=== PATIENT | female | born 1955 | race Caucasian/White ===

== ENCOUNTER 2016-11-20 18:54 | Emergency (ER) | payer OTHER ==
[~2016-11-20] VITALS: Ht 167.6 cm; Wt 64.1 kg
[~2016-11-20 18:54] MED LIST: CALCTAB5 PO; CLC100 PO; DIAZ-165 PO; LRT5 PO; PRED50TA PO
[2016-11-20 18:59] VITALS: TEMP 37.3; Ht 167.6 cm; Wt 64.1 kg
[2016-11-20] MEDS ORDERED: HYDROCODONE/ACETAMOPHEN 5/325MG TAB PO STA (19:14)
--- NOTE | 2016-11-20 19:40 | DIAGNOSTIC IMAGING REPORT ---
RIGHT KNEE 1 OR 2 VIEWS ROUTINE CLINICAL HISTORY: Right knee pain status post fall. COMPARISON: None FINDINGS: There is a comminuted, mildly displaced patellar fracture. There is a large joint effusion with lipohemarthrosis. IMPRESSION: Comminuted, minimally displaced patellar fracture with large joint effusion and lipohemarthrosis. Electronically signed by: Tobi Cuevas M.D. 11/20/2016 7:38 PM Dictated Date/Time: 11/20/2016 7:35 PM
[2016-11-20] MEDS ORDERED: HYDR-5688 PO (20:01)
--- NOTE | 2016-11-20 20:16 | EMERGENCY ROOM VISIT NOTE ---
History First contact with patient: 19:01 Chief Complaint: FALL Stated Complaint: FALL,RT KNEE PAIN History of Present Illness The patient is a 61 year old female who presents to the Emergency Room via private vehicle with complaints of "fall, right knee pain". The patient states that earlier today around 4:15 PM she was at her daughter's house when she accidentally fell and tripped landing on both of her knees of which struck the hardwood floor. She states that she initially had pain in both knees with the left knee has subsided but the right knee pain has persisted. She rates the right knee pain as a 7-8/10. The pain is worse with standing. She denies any hip or ankle pain, numbness or tingling or any history of right knee injuries. She points to the anterior right knee just superior to the right patella as the location of her pain. Review of Systems A complete 6-point Review of Systems was discussed with the patient, with pertinent positives and negatives listed in the History of Present Illness. All remaining Review of Systems questions can be considered negative unless otherwise specified. 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 Social History Smoking Status: Never Smoker Social History: Patient lives at home with and is not currently employed. She denies any alcohol or tobacco use. Current/Historical Medications Scheduled Cetirizine (Zyrtec), 10 MG PO QPM Cholecalciferol (Vitamin D), 3,000 UNITS PO QPM Simvastatin (Zocor), 20 MG PO QPM Scheduled PRN Hydrocodone/Acetaminophen 5MG/325MG ([place] 5MG/325MG), 1-2 TABLET PO Q4 PRN for Pain Allergies Coded Allergies: Sulfamethoxazole w/Trimethoprim (Verified Allergy, Unknown, hives, 11/20/16) Physical Exam Vital Signs Date Time Temp Pulse Resp B/P Pulse Ox O2 Delivery O2 Flow Rate FiO2 11/20/16 18:59 37.3 95 18 138/90 98 Room Air Physical Exam VITAL SIGNS - Vital signs and nursing notes were reviewed. Patient is afebrile , her blood pressure is 138/90, she is not tachycardic and is saturating well on room air 98%. GENERAL -61-year-old female appearing her stated age who is in no acute distress. Communicates well with provider and answers questions appropriately. SKIN - Without rashes. The skin overlying the right knee is edematous and non- erythematous. It is intact. HEAD - NC/AT. EXTREMITIES - No clubbing or peripheral cyanosis. No pretibial edema present. +3 /5 posterior tibial, and dorsalis pedis pulses palpated throughout the right lower extremity. +5/5 strength noted in UE/LE bilaterally. Range of motion of the right knee limited secondary to pain. There was tenderness to palpation overlying the patellar region. This region was only lightly palpated. Care was taken to not flex the knee secondary to concern for patellar injury. NEUROLOGIC - Sensory intact to light touch throughout. Medical Decision & Procedures ER Provider Diagnostic Interpretation: Right knee pain s/p fall. Edema noted to superior knee. Medications Administered Medications (Trade) Dose Ordered Sig/Jonatan Route Start Time Stop Time Status Last Admin Dose Admin Acetaminophen/ Hydrocodone Bitart ([place] 5/325 Tab) 1 tab NOW STAT PO 11/20/16 19:14 11/20/16 19:15 DC 11/20/16 19:30 1 TAB Acetaminophen/ Hydrocodone Bitart ([place] 5/325mg Home Pack) 1 homepack UD STAT PO 11/20/16 20:27 11/20/16 20:28 DC 11/20/16 20:32 1 HOMEPACK Medical Decision Patient was seen and evaluated as above. After obtaining a thorough history and physical examination radiographs of the right knee were obtained secondary to subjective and objective examination findings. There was initially a concern over patellar injury therefore the knee 3 view was changed to a two-view. The patient was given one [place] tablet for her pain. Radiograph shows a patellar fracture. This was discussed with Dr. Gaviria, the senior application security consultant orthopedic surgeon for [facility], which is her current orthopedic group I spoke with him at 7:54 PM. It was discussed that the patient could follow up with their office tomorrow by calling them first thing tomorrow morning. Patient was fitted with a knee immobilizer as well as given crutches and instructed to remain nonweightbearing on the right lower extremity. Care was taken to make sure this was with adequate fit. She was instructed upon management. She was instructed upon worrisome symptoms in which to return. She had questions answered prior to discharge and was discharged home in good condition. She was prescribed [place] 5/325 by my attending after verifying no red flags in the In the evaluation and treatment of this patient, the following differential diagnoses were considered: Patellar Fracture, Tibial Plateau Fracture, Distal Femur Fracture, ACL Injury, PCL Injury, Collateral Ligament Injury, Pes Anserine Bursitis, [place] Fracture. [place] Drug Monitoring Program Search Results: patient reviewed within database, no issues identified Impression Primary Impression: Fall Additional Impression: Right patella fracture Departure Information Dispostion Home / Self-Care Condition GOOD Prescriptions Hydrocodone/Acetaminophen 5MG/325MG ([place] 5MG/325MG) Tab 1-2 TABLET PO Q4 Y for Pain, #25 TAB Prov: Brayan Good, DO 11/20/16 Referrals Seb Lock M.D. (PCP) Seb Gaviria M.D. Forms HOME CARE DOCUMENTATION FORM, IMPORTANT VISIT INFORMATION Patient Instructions A Signature Page, My [facility] Additional Instructions You have been treated in the Emergency Department for Knee Pain. You have received pain medicine in the emergency department which impairs your ability to operate a vehicle. It is illegal for you to drive after receiving these medicines. You have been prescribed NORCO to be used for pain control. This is a narcotic medication. You cannot drive or consume alcohol while on this medicine. This medicine should only be used for pain that cannot be controlled with over-the- counter pain medicines. For pain control, you can use the following iwwh-wae-venialp medicines (if >12 yo): DO NOT TAKE THIS WITH TYLENOL, THIS ALREADY HAS TYLENOL IN IT!!!! - Regular strength (200 mg/tab) Advil (ibuprofen) 1-2 tabs every 4-6 hours as needed. Do not exceed a dose of 3200 mg per day. If this is a recent injury (<24 hrs), ice can be applied to the area of pain for the first 3 days to help decrease pain and inflammation. Ice massages can be performed by freezing water in a paper cup, peeling back the cup to expose the ice and then massaging over the affected area. Keep the knee elevated! You have been provided the number for an Orthopaedic Surgeon. You should call this number as soon as possible to establish a follow-up visit from today's Emergency Department visit. Please tell them that you were seen in the ER last night and your case was discussed with Dr. Gaviria. Keep the knee brace in place until cleared by Orthopedics. Use the crutches you have been provided to keep ALL weight off of the knee until weight bearing is tolerable. Return to the Emergency Department if your current symptoms worsen despite treatment course outlined above.
[2016-11-20] MEDS ORDERED: NORCO 5/325MG HOME PACK PO STA (20:27)
[2016-11-20 20:43] VITALS: BP 116/75; PULSE 87; O2SAT 96
[2017-03-24] MEDS ORDERED: SIMV20TA2 PO (00:19)
[2017-03-24] MEDS ORDERED: CHOL100010 PO (19:48)
[2017-03-24] MEDS ORDERED: CETI10TA84 PO (19:48)
[2017-03-25] MEDS ORDERED: MECL-91 PO (13:09)
[2017-03-25] MEDS ORDERED: TRIA1SPR4 NAE (13:09)
== END 2016-11-20 20:43 | disposition home or self-care (01) ==
LOC: C.EDB 18:55 → C.EDD 20:43
DX: S82.001A Unspecified fracture of right patella, initial encounter for closed fracture (principal); W18.09XA Striking against other object with subsequent fall, initial encounter; Y92.009 Unspecified place in unspecified non-institutional (private) residence as the place of occurrence of the external cause; Y99.8 Other external cause status

== ENCOUNTER → 2017-02-13 | Outpatient (CLI) | payer OTHER ==
[~2017-02-13] MED LIST changes: -CALCTAB5 PO; +CETI10TA84 PO; +CHOL100010 PO; -CLC100 PO; -DIAZ-165 PO; +HYDR-5688 PO; -LRT5 PO; +MECL-91 PO; -PRED50TA PO; +SIMV20TA2 PO; +TRIA1SPR4 NAE
--- NOTE | 2017-02-13 14:01 | MAMMOGRAPHY REPORT ---
BILATERAL DIGITAL DIAGNOSTIC MAMMOGRAM TOMOSYNTHESIS WITH CAD: 02/13/2017 CLINICAL HISTORY: 61-year-old woman presents for bilateral diagnostic mammography at time of annual screening and also to reevaluate probably benign microcalcifications in the upper outer quadrant of the right breast. TECHNIQUE: Bilateral CC and MLO 2-D digital and tomosynthesis images, spot magnification right CC an d ML views were obtained. Current study was also evaluated with a Computer Aided Detection (CAD) sy stem. COMPARISON: Comparison is made to exams dated: 08/15/2016 mammogram, 02/10/2016 mammogram, 02/02/2015 mammogram, 02/03/2016 mammogram, 01/30/2014 mammogram, and 01/29/2013 mammogram - [facility]. BREAST COMPOSITION: The tissue of both breasts is heterogeneously dense, which may obscure small ma sses. FINDINGS: There are scattered benign rim calcifications in the breasts. 2 loosely grouped round carmen rocalcifications in the upper outer posterior right breast, near the fatglandular interface, are un changed in appearance dating back to 02/03/2016 and most likely benign. However, another one-year f ollow-up evaluation with spot magnification views is recommended to ensure at least 2 years of stabi lity to confirm benignity. No new suspicious mass, architectural distortion or cluster of microcalc ifications is seen bilaterally. IMPRESSION: ACR-BI-RADS CATEGORY 3: PROBABLY BENIGN Stable bilateral mammograms, including probably benign round loosely grouped microcalcifications in the right upper outer posterior breast. Another 12 month follow-up bilateral diagnostic mammograms including repeat spot magnification views of the right breast is recommended to ensure longer stabil ity. These results and recommendations were discussed with the patient at the time of the exam. Approximately 10% of breast cancers are not detected with mammography. A negative mammographic repor t should not delay biopsy if a clinically suggestive mass is present. Elizabeth Rizzo M.D. ay/:02/13/2017 10:43:42 Plastics Repairer: Sara Mccabe, [facility] letter sent: Follow Up Recommended 3 BI-RADS Code: ACR-BI-RADS Category 3: Probably Benign
== END | disposition home or self-care (01) ==
LOC: C.MAMM 08:13
PROVIDERS: ATTEND Obstetrics & Gynecology
DX: R92.0 Mammographic microcalcification found on diagnostic imaging of breast (principal)

== ENCOUNTER 2017-03-24 18:49 | Observation (INO) | payer OTHER ==
[~2017-03-24] VITALS: Ht 167.6 cm; Wt 63.4 kg
[~2017-03-24 18:49] MED LIST changes: -CETI10TA84 PO; -CHOL100010 PO; -MECL-91 PO; -TRIA1SPR4 NAE
[2017-03-24] MEDS ORDERED: SODIUM CHLORIDE 0.9% 1000ML 1,000 ML IV STA (19:11)
[2017-03-24] MEDS ORDERED: MECLIZINE HCL 25 MG TAB PO STA (19:11)
[2017-03-24] MEDS ORDERED: ONDANSETRON INJ 2 MG/ML 2 ML VIAL IV STA (19:11)
[2017-03-24] MEDS ORDERED: DIAZEPAM INJ 5 MG/ML 2 ML CARP IV STA (19:11)
[2017-03-24] MEDS ORDERED: SODIUM CHLORIDE 0.9% 1000ML 1,000 ML IV SCH (19:11)
[2017-03-24] MEDS ORDERED: OPTIRAY 320 IV PRN (19:15)
--- NOTE | 2017-03-24 19:16 | EMERGENCY ROOM VISIT NOTE ---
History Report prepared by [place]: Gabi Larry Under the Supervision of: Dr. Usama Wilson M.D. 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 The patient states that when she moves her head a certain way her dizziness is worsened. She notes that she was about to walk up her basement steps when the dizziness suddenly started. She complains of head pressure. The patient notes that her blood pressure was higher than usual when she checked it prior to arrival today. She reports that when she closes her eyes her dizziness is not worsened or relieved. 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 Review of Systems See HPI for pertinent positives & negatives. A total of 10 systems reviewed and were otherwise negative. Past Medical & Surgical Medical Problems: (1) No Known Active Medical Problems Family History Cancer Diabetes mellitus Hypertension Seizures Social History Smoking Status: Never Smoker Smokeless Tobacco Use: No Drug Use: none Marital Status: Housing Status: lives with significant other Occupation Status: retired Current/Historical Medications Scheduled Cetirizine (Zyrtec), 10 MG PO QPM Cholecalciferol (Vitamin D), 3,000 UNITS PO QPM Simvastatin (Zocor), 20 MG PO QPM Allergies Coded Allergies: Sulfamethoxazole w/Trimethoprim (Verified Allergy, Intermediate, hives, 10/29) Physical Exam Vital Signs Date Time Temp Pulse Resp B/P Pulse Ox O2 Delivery O2 Flow Rate FiO2 03/24/17 21:59 90 18 117/72 96 Room Air 03/24/17 20:34 86 03/24/17 20:16 82 18 149/79 97 Room Air 03/24/17 19:16 98 Room Air 03/24/17 18:51 36.7 86 18 149/85 98 Room Air Physical Exam GENERAL: Patient is a healthy-appearing well-nourished HEAD: Normocephalic atraumatic EYES: Pupils equal and react to light. Nystagmus present until she focuses on something. OROPHARYNX mucous membranes are moist no exudates present no erythema or edema present NECK: Supple no nuchal rigidity CHEST: Good equal expansion LUNGS: Clear and equal to auscultation CARDIAC: Normal S1 and S2 ABDOMEN: Soft nontender no guarding BACK: No CVA tenderness EXTREMITIES: No pain upon palpation normal muscle strength in all groups no clubbing cyanosis or edema NEURO: Patient is following commands is answering questions appropriately. Alert and oriented x3 Cranial Nerves 2-12 grossly intact Medical Decision & Procedures ER Provider Diagnostic Interpretation: Radiology results as stated below per my review and radiologist interpretation: CHEST ONE VIEW PORTABLE FINDINGS: No pneumothorax. No pleural effusions. The heart is mildly enlarged. Hazy airspace opacities within the right suprahilar and infrahilar locations. The right suprahilar opacity could be due to the overlapping first rib. Mild fullness within the right hilum. Left lung appears clear. No fractures within the visualized osseous structures. IMPRESSION: 1. Hazy airspace opacities within the right suprahilar and infrahilar locations. This may represent a pneumonia. One month follow-up is recommended to ensure resolution. 2. These is also mild fullness within the right hilum which could represent reactive lymphadenopathy. However, this also bears watching on future examinations to ensure resolution. Electronically signed by: Stewart Ramesh M.D. 03/24/2017 7:40 PM Dictated Date/Time: 03/24/2017 7:[address] NONCONTRAST Findings: The paranasal sinuses and mastoid air cells are clear. The calvarium and skull base are intact. The ventricles and sulci are within normal limits. There is no mass, hematoma, midline shift, or acute infarct. Impression: No acute intracranial abnormality. Electronically signed by: Stewart Ramesh M.D. 03/24/2017 7:49 PM Dictated Date/Time: 03/24/2017 7:45 PM HEAD CTA FINDINGS: There is no mass, hematoma, midline shift, or acute infarct. Visualized intracranial internal carotid arteries, distal vertebral arteries, and basilar artery are widely patent. There is no significant stenosis, occlusion, or aneurysm seen within the bilateral ACAs or MCAs. Severely hypoplastic left P1 segment. The left PIPING SUPERVISOR is fed primarily through the left posterior communicating artery. This is considered to be a normal variant. There is focal moderate to severe narrowing within the mid right PIPING SUPERVISOR best seen on image 99 at 245. IMPRESSION: 1. Focal moderate to severe narrowing within the mid right PIPING SUPERVISOR. However, the distal right PIPING SUPERVISOR is patent. 2. Otherwise, the remaining cerebral arteries show no significant stenosis, occlusion, or aneurysm. Electronically signed by: Stewart Ramesh M.D. 03/24/2017 8:30 PM Dictated Date/Time: 03/24/2017 8:24 PM Laboratory Results 03/24/17 19:20 Red Blood Count 4.69, Mean Corpuscular Volume 90.2, Mean Corpuscular Hemoglobin 29.4, Mean Corpuscular Hemoglobin Concent 32.6, Mean Platelet Volume 10.0, Neutrophils (%) (Auto) 46.6, Lymphocytes (%) (Auto) 32.0, Monocytes (%) (Auto) 6.4, Eosinophils (%) (Auto) 14.3, Basophils (%) (Auto) 0.5, Neutrophils # (Auto ) 3.78, Lymphocytes # (Auto) 2.60, Monocytes # (Auto) 0.52, Eosinophils # (Auto ) 1.16, Basophils # (Auto) 0.04 03/24/17 19:20 Test 03/24/17 19:20 03/24/17 19:30 03/24/17 20:18 White Blood Count 8.12 K/uL (4.8-10.8) Red Blood Count 4.69 M/uL (4.2-5.4) Hemoglobin 13.8 g/dL (12.0-16.0) Hematocrit 42.3 % (37-47) Mean Corpuscular Volume 90.2 fL (80-100) Mean Corpuscular Hemoglobin 29.4 pg (25-34) Mean Corpuscular Hemoglobin Concent 32.6 g/dl (32-36) Platelet Count 307 K/uL (130-400) Mean Platelet Volume 10.0 fL (7.4-10.4) Neutrophils (%) (Auto) 46.6 % Lymphocytes (%) (Auto) 32.0 % Monocytes (%) (Auto) 6.4 % Eosinophils (%) (Auto) 14.3 % Basophils (%) (Auto) 0.5 % Neutrophils # (Auto) 3.78 K/uL (1.4-6.5) Lymphocytes # (Auto) 2.60 K/uL (1.2-3.4) Monocytes # (Auto) 0.52 K/uL (0.11-0.59) Eosinophils # (Auto) 1.16 K/uL (0-0.5) Basophils # (Auto) 0.04 K/uL (0-0.2) RDW Standard Deviation 47.2 fL (36.4-46.3) RDW Coefficient of Variation 14.3 % (11.5-14.5) Immature Granulocyte % (Auto) 0.2 % Immature Granulocyte # (Auto) 0.02 K/uL (0.00-0.02) Prothrombin Time 10.1 SECONDS (9.0-12.0) Prothromb Time International Ratio 0.9 (0.9-1.1) Activated Partial Thromboplast Time 24.1 SECONDS (21.0-31.0) Partial Thromboplastin Ratio 0.9 Anion Gap 4.0 mmol/L (3-11) Est Creatinine Clear Calc Drug Dose 64.2 ml/min Estimated GFR () 85.1 Estimated GFR (Non- 73.4 BUN/Creatinine Ratio 22.8 (10-20) Calcium Level 9.8 mg/dl (8.5-10.1) Total Creatine Kinase 52 U/L (26-192) Creatine Kinase MB < 0.5 ng/ml (0.5-3.6) Creatine Kinase MB Ratio (0-3.0) Troponin I < 0.015 ng/ml (0-0.045) Bedside Prothrombin Time INR 1.0 (0.9-1.1) Bedside Glucose 91 mg/dl (70-90) Urine Color YELLOW Urine Appearance CLEAR (CLEAR) Urine pH 5.5 (4.5-7.5) Urine Specific Mellen 1.010 (1.000-1.030) Urine Protein NEG (NEG) Urine Glucose (UA) NEG (NEG) Urine Ketones NEG (NEG) Urine Occult Blood NEG (NEG) Urine Nitrite NEG (NEG) Urine Bilirubin NEG (NEG) Urine Urobilinogen NEG (NEG) Urine Leukocyte Esterase SMALL (NEG) Urine WBC (Auto) 1-5 /hpf (0-5) Urine RBC (Auto) 0-4 /hpf (0-4) Urine Hyaline Casts (Auto) 0 /lpf (0-5) Urine Epithelial Cells (Auto) 0-5 /lpf (0-5) Urine Bacteria (Auto) NEG (NEG) Labs reviewed by ED physician. Medications Administered Medications (Trade) Dose Ordered Sig/Jonatan Route Start Time Stop Time Status Last Admin Dose Admin Sodium Chloride 1,000 ml @ 50 mls/hr Q20H IV 03/24/17 19:11 04/23/17 19:10 03/24/17 20:18 50 MLS/HR Sodium Chloride (Nss 1000ml) 1,000 ml @ 999 mls/hr Q1H1M STAT IV 03/24/17 19:11 03/24/17 20:11 DC 03/24/17 19:22 999 MLS/HR Ondansetron HCl (Zofran Inj) 4 mg NOW STAT IV 03/24/17 19:11 03/24/17 19:14 DC 03/24/17 19:22 4 MG Meclizine HCl (Antivert Tab) 25 mg NOW STAT PO 03/24/17 19:11 03/24/17 19:14 DC 03/24/17 19:22 25 MG Diazepam (Valium Inj) 2.5 mg NOW STAT IV 03/24/17 19:11 03/24/17 19:14 DC 03/24/17 19:22 2.5 MG Aspirin (Aspirin Chew) 324 mg NOW STAT PO 03/24/17 20:53 03/24/17 20:54 DC 03/24/17 21:06 324 MG ECG Indication: other (dizziness) Rate (beats per minute): 80 Rhythm: normal sinus Findings: no acute ischemic change, no ectopy ED Course 1858: Past medical records reviewed. The patient was evaluated in room B7. A complete history and physical examination was performed. 1910: Valium Inj 2.5mg IV, Antivert Tab 25mg PO, Zofran Inj 4mg IV, Sodium Chloride 1000 ml @ 999 mls/hr IV, Sodium Chloride 1000 ml @ 50 mls/hr IV. 2052: I spoke to Dr. Garcia from [facility]. He will evaluate the patient. He will be on the monitor evaluating the patient and would like us to give her fluid and Aspirin. 2052: Aspirin Chew 324mg PO. 2143: I spoke to Dr. Garcia. He recommends that the patient has an MRI and is further evaluated by a hospitalist. Medical Decision Differential diagnosis: Etiologies such as benign positional vertigo, dehydration, hypovolemia, anemia, tumor, infection, hypoglycemia, electrolyte abnormalities, cardiac sources, intracerebral event, toxicologic, neurologic, as well as others were entertained. This is a 61-year-old female who presents emergency department complaining of severe dizziness that is present even when she closes her eyes and does not seem to fatigue. In addition the patient has nystagmus on exam. due to the nature the patient's complaints as well as the nystagmus the patient was sent for CTA of the head area and this was concerning for PIPING SUPERVISOR insufficiency with this finding I did discuss the case with the [facility] neurologist who asked that the patient be given normal saline bolus, 324 mg of aspirin. He also asked that the patient be admitted to the medicine service and receive an MRI/MRA of the head. I did discuss the case with the hospitalist service who is in agreement with the treatment plan. Consults Time Called: 2049 Consulting Physician: Dr. Jose Gonsalez Returned Call: [address] Garcia from [facility]. He will evaluate the patient. Additional Consults: Time Called: 2139 Consulted Physician: Dr. Jose Gonsalez Returned Call: 2143 Additional Comments: I spoke to Dr. Garcia. He recommends that the patient has an MRI and is further evaluated by a hospitalist. Time Called: 2149 Consulted Physician: Dr. Sandra POLO Impression Primary Impression: Dizziness Scribe Attestation The scribe's documentation has been prepared under my direction and personally reviewed by me in its entirety. I confirm that the note above accurately reflects all work, treatment, procedures, and medical decision making performed by me. Departure Information Dispostion Still a Patient Referrals Seb Lock M.D. (PCP) Patient Instructions My [facility]
[2017-03-24 19:32] LABS: BASO % 0.5 %; BASO ABS # 0.04 K/uL (0-0.2); COMPLETE YES; EOS % 14.3 %; HEMATOCRIT 42.3 % (37-47); IG% 0.2 %; MEAN CELL VOLUME 90.2 fL (80-100); MEAN CORPUSCULAR HEMOGLOBIN 29.4 pg (25-34); MEAN CORPUSCULAR HGB CONC 32.6 g/dl (32-36); MONO % 6.4 %; NEUT % 46.6 %; PLATELET COUNT 307 K/uL (130-400); RED BLOOD COUNT 4.69 M/uL (4.2-5.4); WHITE BLOOD COUNT 8.12 K/uL (4.8-10.8)
[2017-03-24 19:41] LABS: INR 0.9 (0.9-1.1); PARTIAL THROMBOPLASTIN RATIO 0.9; PROTHROMBIN TIME (PATIENT) 10.1 SECONDS (9.0-12.0)
--- NOTE | 2017-03-24 19:42 | DIAGNOSTIC IMAGING REPORT ---
CHEST ONE VIEW PORTABLE HISTORY: Dizziness. Stroke COMPARISON: Chest 11/19/2010. FINDINGS: No pneumothorax. No pleural effusions. The heart is mildly enlarged. Hazy airspace opacities within the right suprahilar and infrahilar locations. The right suprahilar opacity could be due to the overlapping first rib. Mild fullness within the right hilum. Left lung appears clear. No fractures within the visualized osseous structures. IMPRESSION: 1. Hazy airspace opacities within the right suprahilar and infrahilar locations. This may represent a pneumonia. One month follow-up is recommended to ensure resolution. 2. These is also mild fullness within the right hilum which could represent reactive lymphadenopathy. However, this also bears watching on future examinations to ensure resolution. Electronically signed by: Stewart Ramesh M.D. 03/24/2017 7:40 PM Dictated Date/Time: 03/24/2017 7:37 PM
[2017-03-24] MEDS ORDERED: CETI10TA84 PO ×2 (19:48)
[2017-03-24] MEDS ORDERED: CHOL100010 PO ×2 (19:48)
[2017-03-24 19:50] LABS: BLOOD UREA NITROGEN 19 mg/dl (7-18); BUN/CREATININE RATIO 22.8 (10-20); CALCIUM 9.8 mg/dl (8.5-10.1); CARBON DIOXIDE 32 mmol/L (21-32); CHLORIDE 104 mmol/L (98-107); CREATININE 0.85 mg/dl (0.60-1.20); GLUCOSE 85 mg/dl (70-99); POTASSIUM 3.9 mmol/L (3.5-5.1); SODIUM 140 mmol/L (136-145)
--- NOTE | 2017-03-24 19:50 | DIAGNOSTIC IMAGING REPORT ---
HEAD CT NONCONTRAST CT DOSE: 537.48 mGy.cm HISTORY: Dizziness. Stroke TECHNIQUE: Multiaxial CT images of the head were performed without the use of intravenous contrast. Automated exposure control was utilized for this study. Comparison: None. Findings: The paranasal sinuses and mastoid air cells are clear. The calvarium and skull base are intact. The ventricles and sulci are within normal limits. There is no mass, hematoma, midline shift, or acute infarct. Impression: No acute intracranial abnormality. Electronically signed by: Stewart Ramesh M.D. 03/24/2017 7:49 PM Dictated Date/Time: 03/24/2017 7:45 PM
[2017-03-24 20:30] LABS: URINE APPEARANCE CLEAR (CLEAR); URINE BILIRUBIN NEG (NEG); URINE COLOR YELLOW; URINE EPITHELIAL CELL AUTO 0-5 /lpf (0-5); URINE NITRITE NEG (NEG); URINE PH 5.5 (4.5-7.5); UROBILINOGEN NEG (NEG); ZZUR CULT IF INDIC CLEAN CATCH NO
--- NOTE | 2017-03-24 20:31 | DIAGNOSTIC IMAGING REPORT ---
HEAD CTA HISTORY: Dizziness. TECHNIQUE: Multiaxial CT images of the head were performed after the intravenous administration of contrast to evaluate the major cerebral vessels. Maximum intensity projection images were also obtained. COMPARISON: Head CT 03/24/2017. FINDINGS: There is no mass, hematoma, midline shift, or acute infarct. Visualized intracranial internal carotid arteries, distal vertebral arteries, and basilar artery are widely patent. There is no significant stenosis, occlusion, or aneurysm seen within the bilateral ACAs or MCAs. Severely hypoplastic left P1 segment. The left TOP DYEING MACHINE LOADER is fed primarily through the left posterior communicating artery. This is considered to be a normal variant. There is focal moderate to severe narrowing within the mid right TOP DYEING MACHINE LOADER best seen on image 99 at 245. IMPRESSION: 1. Focal moderate to severe narrowing within the mid right TOP DYEING MACHINE LOADER. However, the distal right TOP DYEING MACHINE LOADER is patent. 2. Otherwise, the remaining cerebral arteries show no significant stenosis, occlusion, or aneurysm. Electronically signed by: Stewart Ramesh M.D. 03/24/2017 8:30 PM Dictated Date/Time: 03/24/2017 8:24 PM
[2017-03-24 20:33] LABS: MANUAL MICROSCOPIC REQUIRED? NO; REVIEW REQ? NO
[2017-03-24] MEDS ORDERED: ASPIRIN 81 MG CHEW PO STA (20:53)
--- NOTE | 2017-03-24 23:23 | History and Physical ---
History & Physical Date & Time of Service: March 24, 2017 at 23:24 Chief Complaint: Dizzy,Possible Tia Primary Care Physician: Seb Lock M.D. History of Present Illness Source: patient The patient is a 61-year-old female who presents emergency department with complaint of intermittent dizziness that began just prior to arrival. She was in her basement time symptoms began, and was about to walk up steps. She's also had generalized head pressure, and she notes that her blood pressure was higher than usual when she checked it just prior to arrival. The dizziness is worse with some directions of head movement, and does not change when she closes her eyes. She denies focal weakness, numbness or tingling in arms or legs, and she has no difficulty with speech, swallowing, or memory function. Family History Cancer Diabetes mellitus Hypertension Seizures Social History Smoking Status: Never Smoker Smokeless Tobacco Use: No Alcohol Use: none Drug Use: none Marital Status: Housing status: lives with family Occupational Status: retired Multi-Drug Resistant Organisms History of MDRO: No Allergies Coded Allergies: Sulfamethoxazole w/Trimethoprim (Verified Allergy, Intermediate, hives, 10/29) Home Medications Scheduled Cetirizine (Zyrtec), 10 MG PO QPM Cholecalciferol (Vitamin D), 3,000 UNITS PO QPM Simvastatin (Zocor), 20 MG PO QPM Review of Systems Constitutional: No chills, No fatigue, No fever, No problem reported, No sweats , No weakness, No weight loss Eyes: No diplopia, No discharge, No eye pain, No problem reported, No redness, No worsening of vision ENT: No dental problems, No hearing loss, No nasal symptoms, No problem reported, No sore throat, No tinnitus, No trouble swallowing, No unusual epistaxis Respiratory: No cough, No dyspnea at rest, No dyspnea on exertion, No hemoptysis, No problem reported, No shortness of breath, No sputum, No wheezing Cardiovascular: No PND, No chest pain, No claudication, No edema, No orthopnea , No palpitations, No problem reported Abdomen: No GI bleeding, No constipation, No diarrhea, No nausea, No pain, No problem reported, No vomiting Musculoskeletal: No calf pain, No joint pain, No muscle pain, No problem reported, No swelling Genitourinary - Female: No dysmenorrhea, No dysuria, No hematuria, No menorrhagia, No metrorrhagia, No , No problem reported, No rash, No urinary frequency, No urinary incontinence, No urinary retention, No urinary urgency, No vaginal bleeding, No vaginal discharge, No vaginal itching, No vulvodynia Neurologic: + problem reported (dizziness), No balance problems, No memory loss , No numbness/tingling, No paralysis, No vertigo, No weakness Psychiatric: No anhedonism, No anxiety, No depression symptoms, No insomnia, No problem reported, No substance abuse Endocrine: No excessive thirst, No excessive urination, No fatigue, No problem reported Hematologic / Lymphatic: No abnormal bleeding/bruising, No clotting problems, No night sweats, No problem reported, No swollen lymph nodes Integumentary: No bleeding, No color change, No itch, No new/changing skin lesions, No problem reported, No rash Allergic / Immunologic: No environmental allergies, No food allergies, No frequent infections, No hives, No pet sensitivities, No poor healing, No problem reported, No prolonged convalescence, No seasonal allergies Physical Exam Vital Signs Date Time Temp Pulse Resp B/P Pulse Ox O2 Delivery O2 Flow Rate FiO2 03/24/17 21:59 90 18 117/72 96 Room Air 03/24/17 20:34 86 03/24/17 20:16 82 18 149/79 97 Room Air 03/24/17 19:16 98 Room Air 03/24/17 18:51 36.7 86 18 149/85 98 Room Air General Appearance: WD/WN, no apparent distress Head: normocephalic, atraumatic Eyes: normal inspection, PERRL, EOMI, sclerae normal ENT: normal ENT inspection, hearing grossly normal, pharynx normal Neck: supple, no adenopathy, thyroid normal, no JVD, no carotid bruits, trachea midline Respiratory/Chest: chest non-tender, lungs clear, normal breath sounds, no respiratory distress, no accessory muscle use Cardiovascular: regular rate, rhythm, no edema, no gallop, no JVD, no murmur, normal peripheral pulses Abdomen/GI: normal bowel sounds, non tender, soft, no organomegaly Back: normal inspection, no CVA tenderness, no muscle spasm, normal range of motion Extremities/Musculoskelatal: normal inspection, no calf tenderness, normal capillary refill, no pedal edema, normal range of motion, non-tender, pelvis stable 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: 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, no motor/sensory deficits, alert, normal mood/affect, normal reflexes, oriented x 3 Skin: normal color, warm/dry, no rash Lymphatic: no adenopathy Diagnostics Laboratory Results Results Past 24 Hours Test 03/24/17 19:20 03/24/17 19:30 03/24/17 20:18 Range/Units White Blood Count 8.12 4.8-10.8 K/uL Red Blood Count 4.69 4.2-5.4 M/uL Hemoglobin 13.8 12.0-16.0 g/dL Hematocrit 42.3 37-47 % Mean Corpuscular Volume 90.2 80-100 fL Mean Corpuscular Hemoglobin 29.4 25-34 pg Mean Corpuscular Hemoglobin Concent 32.6 32-36 g/dl Platelet Count 307 130-400 K/uL Mean Platelet Volume 10.0 7.4-10.4 fL Neutrophils (%) (Auto) 46.6 % Lymphocytes (%) (Auto) 32.0 % Monocytes (%) (Auto) 6.4 % Eosinophils (%) (Auto) 14.3 % Basophils (%) (Auto) 0.5 % Neutrophils # (Auto) 3.78 1.4-6.5 K/uL Lymphocytes # (Auto) 2.60 1.2-3.4 K/uL Monocytes # (Auto) 0.52 0.11-0.59 K/uL Eosinophils # (Auto) 1.16 0-0.5 K/uL Basophils # (Auto) 0.04 0-0.2 K/uL RDW Standard Deviation 47.2 36.4-46.3 fL RDW Coefficient of Variation 14.3 11.5-14.5 % Immature Granulocyte % (Auto) 0.2 % Immature Granulocyte # (Auto) 0.02 0.00-0.02 K/uL Prothrombin Time 10.1 9.0-12.0 SECONDS Prothromb Time International Ratio 0.9 0.9-1.1 Activated Partial Thromboplast Time 24.1 21.0-31.0 SECONDS Partial Thromboplastin Ratio 0.9 Sodium Level 140 136-145 mmol/L Potassium Level 3.9 3.5-5.1 mmol/L Chloride Level 104 98-107 mmol/L Carbon Dioxide Level 32 21-32 mmol/L Anion Gap 4.0 3-11 mmol/L Blood Urea Nitrogen 19 7-18 mg/dl Creatinine 0.85 0.60-1.20 mg/dl Est Creatinine Clear Calc Drug Dose 64.2 ml/min Estimated GFR () 85.1 Estimated GFR (Non- 73.4 BUN/Creatinine Ratio 22.8 10-20 Random Glucose 85 70-99 mg/dl Calcium Level 9.8 8.5-10.1 mg/dl Total Creatine Kinase 52 26-192 U/L Creatine Kinase MB < 0.5 0.5-3.6 ng/ml Creatine Kinase MB Ratio 0-3.0 Troponin I < 0.015 0-0.045 ng/ml Bedside Prothrombin Time INR 1.0 0.9-1.1 Bedside Glucose 91 70-90 mg/dl Urine Color YELLOW Urine Appearance CLEAR CLEAR Urine pH 5.5 4.5-7.5 Urine Specific [place] 1.010 1.000-1.030 Urine Protein NEG NEG Urine Glucose (UA) NEG NEG Urine Ketones NEG NEG Urine Occult Blood NEG NEG Urine Nitrite NEG NEG Urine Bilirubin NEG NEG Urine Urobilinogen NEG NEG Urine Leukocyte Esterase SMALL NEG Urine WBC (Auto) 1-5 0-5 /hpf Urine RBC (Auto) 0-4 0-4 /hpf Urine Hyaline Casts (Auto) 0 0-5 /lpf Urine Epithelial Cells (Auto) 0-5 0-5 /lpf Urine Bacteria (Auto) NEG NEG Diagnostic Radiology Patient Name: LILA MEJIA Unit Number: [id number] Dictated: 03/24/171944 Transcribed: 03/24/171944 [facility] Printed Date/Time: [~ rep prt dt]/[~ rep prt tm] [~ rep ct labl] - [~ rep ct ivnm] [facility] [place] [address] Dictated: 03/24/171944 Transcribed: 03/24/171944 [facility] Printed Date/Time: [~ rep prt dt]/[~ rep prt tm] [~ rep ct labl] - [~ rep ct ivnm] HEAD CT NONCONTRAST CT DOSE: 537.48 mGy.cm HISTORY: Dizziness. Stroke TECHNIQUE: Multiaxial CT images of the head were performed without the use of intravenous contrast. Automated exposure control was utilized for this study. Comparison: None. Findings: The paranasal sinuses and mastoid air cells are clear. The calvarium and skull base are intact. The ventricles and sulci are within normal limits. There is no mass, hematoma, midline shift, or acute infarct. Impression: No acute intracranial abnormality. Electronically signed by: Stewart Ramesh M.D. 03/24/2017 7:49 PM Dictated Date/Time: 03/24/2017 7:45 PM The status of this report is Signed. Draft = Not yet reviewed or approved by Radiologist. Signed = Reviewed and approved by Radiologist. <AttendingPhy></AttendingPhy> <FamilyPhy>Seb Lock M.D.</FamilyPhy> < PrimaryPhy>Seb Lock M.D.</PrimaryPhy> <UnitNumber>[id number]</UnitNumber> <VisitNumber>[id number]</VisitNumber> <PatientName>LILA MEJIA</ PatientName> <DateOfBirth>1955</DateOfBirth> <Location>C.EDB</Location> < ServiceDate>03/24/17</ServiceDate> <MNE>ESINDI</MNE> <OrderingPhy>Usama Wilson MD</OrderingPhy> <OrderingPhyMNE>f rep ord dr carrizales</OrderingPhyMNE> < DictatingPhyMNE>f rep dict dr carrizales</DictatingPhyMNE> <CCListMNE>f rep ct sofie</ CCListMNE> <AdmittingPhyMNE>f pt admit dr carrizales</AdmittingPhyMNE> <AttendingPhyMNE >f pt attend dr carrizales</AttendingPhyMNE> <ConsultingPhyMNE>f pt consult dr carrizales</ConsultingPhyMNE> <FamilyPhyMNE>f pt fam dr carrizales</FamilyPhyMNE> <OtherPhyMNE>f pt other dr carrizales</OtherPhyMNE> < PrimaryPhyMNE>f pt prim care dr carrizales</PrimaryPhyMNE> <ReferringPhyMNE>f pt referring dr carrizales</ReferringPhyMNE> Patient Name: LILA MEJIA Unit Number: [id number] Dictated: 03/24/171936 Transcribed: 03/24/171936 [facility] Printed Date/Time: [~ rep prt dt]/[~ rep prt tm] [~ rep ct labl] - [~ rep ct ivnm] [facility] Radiology Department [place] [id number] Dictated: 03/24/171936 Transcribed: 03/24/171936 [facility] Printed Date/Time: [~ rep prt dt]/[~ rep prt tm] [~ rep ct labl] - [~ rep ct ivnm] CHEST ONE VIEW PORTABLE HISTORY: Dizziness. Stroke COMPARISON: Chest 11/19/2010. FINDINGS: No pneumothorax. No pleural effusions. The heart is mildly enlarged. Hazy airspace opacities within the right suprahilar and infrahilar locations. The right suprahilar opacity could be due to the overlapping first rib. Mild fullness within the right hilum. Left lung appears clear. No fractures within the visualized osseous structures. IMPRESSION: 1. Hazy airspace opacities within the right suprahilar and infrahilar locations. This may represent a pneumonia. One month follow-up is recommended to ensure resolution. 2. These is also mild fullness within the right hilum which could represent reactive lymphadenopathy. However, this also bears watching on future examinations to ensure resolution. Electronically signed by: Stewart Ramesh M.D. 03/24/2017 7:40 PM Dictated Date/Time: 03/24/2017 7:37 PM The status of this report is Signed. Draft = Not yet reviewed or approved by Radiologist. Signed = Reviewed and approved by Radiologist. <AttendingPhy></AttendingPhy> <FamilyPhy>Seb Lock M.D.</FamilyPhy> < PrimaryPhy>Seb Lock M.D.</PrimaryPhy> <UnitNumber>[id number]</UnitNumber> <VisitNumber>[id number]</VisitNumber> <PatientName>LILA MEJIA</ PatientName> <DateOfBirth>1955</DateOfBirth> <Location>C.EDB</Location> < ServiceDate>03/24/17</ServiceDate> <MNE>ESINDI</MNE> <OrderingPhy>Usama Wilson MD</OrderingPhy> <OrderingPhyMNE>f rep ord dr carrizales</OrderingPhyMNE> < DictatingPhyMNE>f rep dict dr carrizales</DictatingPhyMNE> <CCListMNE>f rep ct mne</ CCListMNE> <AdmittingPhyMNE>f pt admit dr carrizales</AdmittingPhyMNE> <AttendingPhyMNE >f pt attend dr carrizaels</AttendingPhyMNE> <ConsultingPhyMNE>f pt consult dr carrizales</ConsultingPhyMNE> <FamilyPhyMNE>f pt fam dr carrizales</FamilyPhyMNE> <OtherPhyMNE>f pt other dr carrizales</OtherPhyMNE> < PrimaryPhyMNE>f pt prim care dr carrizales</PrimaryPhyMNE> <ReferringPhyMNE>f pt referring dr carrizales</ReferringPhyMNE> Patient Name: LILA MEJIA Unit Number: [id number] Dictated: 03/24/172023 Transcribed: 03/24/172023 [facility] Printed Date/Time: [~ rep prt dt]/[~ rep prt tm] [~ rep ct labl] - [~ rep ct ivnm] [facility] Radiology Department [place] [id number] Dictated: 03/24/172023 Transcribed: 03/24/172023 [facility] Printed Date/Time: [~ rep prt dt]/[~ rep prt tm] [~ rep ct labl] - [~ rep ct ivnm] HEAD CTA HISTORY: Dizziness. TECHNIQUE: Multiaxial CT images of the head were performed after the intravenous administration of contrast to evaluate the major cerebral vessels. Maximum intensity projection images were also obtained. COMPARISON: Head CT 03/24/2017. FINDINGS: There is no mass, hematoma, midline shift, or acute infarct. Visualized intracranial internal carotid arteries, distal vertebral arteries, and basilar artery are widely patent. There is no significant stenosis, occlusion, or aneurysm seen within the bilateral ACAs or MCAs. Severely hypoplastic left P1 segment. The left ASSISTANT LABORATORY DIRECTOR is fed primarily through the left posterior communicating artery. This is considered to be a normal variant. There is focal moderate to severe narrowing within the mid right ASSISTANT LABORATORY DIRECTOR best seen on image 99 at 245. IMPRESSION: 1. Focal moderate to severe narrowing within the mid right ASSISTANT LABORATORY DIRECTOR. However, the distal right ASSISTANT LABORATORY DIRECTOR is patent. 2. Otherwise, the remaining cerebral arteries show no significant stenosis, occlusion, or aneurysm. Electronically signed by: Stewart Ramesh M.D. 03/24/2017 8:30 PM Dictated Date/Time: 03/24/2017 8:24 PM The status of this report is Signed. Draft = Not yet reviewed or approved by Radiologist. Signed = Reviewed and approved by Radiologist. <AttendingPhy></AttendingPhy> <FamilyPhy>Seb Lock M.D.</FamilyPhy> < PrimaryPhy>Seb Lock M.D.</PrimaryPhy> <UnitNumber>[id number]</UnitNumber> <VisitNumber>[id number]</VisitNumber> <PatientName>LILA MEJIA</ PatientName> <DateOfBirth>1955</DateOfBirth> <Location>C.EDB</Location> < ServiceDate>03/24/17</ServiceDate> <MNE>ESINDI</MNE> <OrderingPhy>Usama Wilson MD</OrderingPhy> <OrderingPhyMNE>f rep ord dr carrizales</OrderingPhyMNE> < DictatingPhyMNE>f rep dict dr carrizales</DictatingPhyMNE> <CCListMNE>f rep ct sofie</ CCListMNE> <AdmittingPhyMNE>f pt admit dr carrizales</AdmittingPhyMNE> <AttendingPhyMNE >f pt attend dr carrizales</AttendingPhyMNE> <ConsultingPhyMNE>f pt consult dr carrizales</ConsultingPhyMNE> <FamilyPhyMNE>f pt fam dr carrizales</FamilyPhyMNE> <OtherPhyMNE>f pt other dr carrizales</OtherPhyMNE> < PrimaryPhyMNE>f pt prim care dr carrizales</PrimaryPhyMNE> <ReferringPhyMNE>f pt referring dr carrizales</ReferringPhyMNE> EKG EKG shows normal sinus rhythm at 80 bpm, there are no acute ST-T changes. Impression Assessment and Plan Dizziness/possible TIA--the patient will be admitted to the telemetry unit for serial cardiac enzymes, cardiac rhythm monitoring and a 2-D echocardiogram with Dopplers. CT of the head suggests possible ASSISTANT LABORATORY DIRECTOR focal narrowing. We will order an MRI of the brain combo, MRA of the neck combo, MRA of the head without contrast. We'll place patient on aspirin 81 mg by mouth every morning. Consult neurology, PT and OT, per protocol. Abnormal chest x-ray--portable film suggests a possible pneumonia in the right suprahilar and infrahilar regions. However, she has no symptoms, and has a normal white blood cell count and pulse ox. We'll order a CT scan of the chest to assess for possible obstructive pathology. Hypercholesterolemia--check a fasting lipid profile in the a.m. For now increase simvastatin from 20-40 mg by mouth every afternoon. Seasonal allergy--continue cetirizine 10 mg by mouth every afternoon. Level of Care Telemetry Advanced Directives Existing Advance Directive: No Existing Living Will: No Existing Power of Cultural Centre Manager: No Resuscitation Status FULL RESUSCITATION VTE Prophylaxis Risk Level: Low Given or contraindicated: SCD's Social Service Consult None Apply
[2017-03-25] MEDS ORDERED: GADAVIST IV PRN (00:15)
[2017-03-25] MEDS ORDERED: ACETAMINOPHEN 325 MG TAB PO PRN (01:15)
[2017-03-25] MEDS ORDERED: PHARMACIST DISCHARGE MED REC CONSULT PRN (01:15)
[2017-03-25] MEDS ORDERED: IV FLUIDS COMPLETED PRN (01:45)
[2017-03-25 02:30] VITALS: BP 108/71; PULSE 82; TEMP 36.7; O2SAT 97; Ht 167.6 cm; Wt 63.4 kg
--- NOTE | 2017-03-25 07:16 | DIAGNOSTIC IMAGING REPORT ---
Brain MRI WITH AND WITHOUT CONTRAST HISTORY: Pt c/o vertigo TECHNIQUE: Multiplanar multisequence MRI of the brain was performed both before and after the intravenous administration of contrast. COMPARISON STUDY: Head CT 03/24/2017. FINDINGS: There are no areas of restricted diffusion to suggest acute infarction. The midline structures are intact. The paranasal sinuses are clear. The mastoid air cells are clear. The ventricles and sulci are within normal limits for age. There is no mass, hematoma, midline shift. The major vascular flow-voids at the skull base are well maintained. Postcontrast sequences show no areas of abnormal enhancement. Questionable patchy area of enhancement within the right cerebellar hemisphere is likely artifact. IMPRESSION: No acute intracranial abnormality. Electronically signed by: Stewart Ramesh M.D. 03/25/2017 7:15 AM Dictated Date/Time: 03/25/2017 7:12 AM
[2017-03-25 07:17] LABS: ESTIMATED AVERAGE GLUCOSE 117 mg/dl; HA1C FLAG Normal (Normal)
--- NOTE | 2017-03-25 07:19 | DIAGNOSTIC IMAGING REPORT ---
Brain MRA HISTORY: Pt c/o vertigo TECHNIQUE: 3-D [id number] MRA of the brain was performed without contrast. COMPARISON STUDY: Head CTA 03/24/2017. FINDINGS: Visualized intracranial internal carotid arteries, distal vertebral arteries, and basilar artery are widely patent. There is no significant stenosis, occlusion, or aneurysm seen within the bilateral ACAs, MCAs, or surgeon's assistant. Hypoplastic left P1 segment is again noted. IMPRESSION: No significant stenosis, occlusion, or aneurysm within the [place]. Electronically signed by: Stewart Ramesh M.D. 03/25/2017 7:17 AM Dictated Date/Time: 03/25/2017 7:15 AM
--- NOTE | 2017-03-25 07:21 | DIAGNOSTIC IMAGING REPORT ---
NECK MRA HISTORY: Pt c/o vertigo TECHNIQUE: Izew-to-cphjep and gadolinium-enhanced MRA of the neck was performed both before and after the intravenous administration of contrast. All measurements were calculated based on NASCET criteria. COMPARISON STUDY: None. FINDINGS: The aortic arch and proximal great vessels are widely patent. There is no significant stenosis, occlusion, or dissection identified within the bilateral common carotid, internal carotid, or vertebral arteries. IMPRESSION: No significant stenosis, occlusion, or dissection identified within the carotid or vertebral arteries. Electronically signed by: Stewart Ramesh M.D. 03/25/2017 7:19 AM Dictated Date/Time: 03/25/2017 7:17 AM
[2017-03-25 08:39] VITALS: BP 120/73; PULSE 60; TEMP 37; O2SAT 97
[2017-03-25] MEDS ORDERED: ASPIRIN 81 MG ECTAB PO SCH (09:00)
--- NOTE | 2017-03-25 09:41 | DIAGNOSTIC IMAGING REPORT ---
CHEST CT WITH CONTRAST CT DOSE: 176.41 mGy.cm HISTORY: ABNORMAL CHEST X-RAY WITH POSSIBLE RIGHT SIDE PNEUMONIA TECHNIQUE: Multiaxial CT images of the chest were performed following the intravenous administration of contrast. COMPARISON: Chest 03/24/2017. FINDINGS: The central airways are patent. No pleural effusions. No pneumothorax. Small biapical subpleural densities favor scarring. No focal lung consolidations to suggest pneumonia. There is a 1.5 cm solid and cystic right thyroid nodule. This remains unchanged. No mediastinal or hilar lymphadenopathy. The visualized liver, spleen, and adrenal glands are unremarkable. The central pulmonary arteries are patent. Normal caliber thoracic aorta. IMPRESSION: 1. No focal lung consolidations to suggest pneumonia. 2. No mediastinal or hilar lymphadenopathy. 3. Stable 1.5 cm right thyroid nodule. Electronically signed by: Stewart Ramesh M.D. 03/25/2017 9:40 AM Dictated Date/Time: 03/25/2017 9:35 AM
--- NOTE | 2017-03-25 11:13 | Neurology Consultation ---
Neurology Consultation Date of Consultation: March 25, 2017. Attending Physician: Rashaun Gaines MD Primary Care Physician: Seb Lock M.D. Reason for Consultation: Patient is a 61-year-old, was I was asked to see at request of Dr. Flores , for neurologic consultation regarding acute vertigo question TIA or stroke. History of Present Illness Source: patient, family, caregiver, hospital records Patient has no significant history of hypertension, diabetes, heart disease, or stroke. She does have some dyslipidemia and takes a statin. She was in her usual state of good health when she woke on March 24. She spent the day around the house and went out shopping feeling quite well. Around 5:00 in the afternoon she was involved in some projects around the house when she went to start preparing supper. Somewhere around 5:30 she had the onset of some mild wooziness and dizziness. There was a moving sensation and she may have had a bit of spinning to this. It was mild for about 15 or 20 minutes and then she had a severe episode of vertigo plus lightheadedness and some bioccipital discomfort somewhere around 6:00 in the evening. She took her own blood pressure and it was 164/90. She no speech or mentation problems, weakness or numbness in the extremities, vision problems, balance issues, or nausea or vomiting. The worst of this lasted 30-60 seconds. They traveled to the emergency room and arrived at 1851 hours with a temperature of 36.7, pulse 86 and regular, respiratory 18 and comfortable, blood pressure 149/85, and O2 saturation 98%. She was noted to have nystagmus with lateral gaze. Her vertigo had improved nicely although there was a little bit of wooziness still. She denied hearing loss, ear pain or ringing in the ears although there was some fullness to both ears. CT scan of the head was unremarkable. Chest x-ray showed some right perihilar shadowing. CBC and chem profile were unremarkable. CT angiography of the head showed a narrowing of the right posterior cerebral artery. MRI of the brain was unremarkable with no evidence of stroke, tumor, MS, or old ischemia MR angiography of the head and neck were both unremarkable with no significant stenoses. By this morning her symptoms have resolved. Past Medical/Surgical History Medical Problems: (1) Fall Status: Acute (2) Right patella fracture Status: Acute Dyslipidemia Was some teeth removal Family History Mother age 94 with multiple TIAs. Maternal grandmother had MS. Father age 84 of prostate cancer She has 2 children and 4 grandchildren Social History Patient never smoked cigarettes. She has a glass of wine perhaps once per month. 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 Smoking Status: Never smoker Smokeless Tobacco Use: No Alcohol Use: occasionally Drug Use: none Marital Status: Housing Status: lives with significant other Occupation Status: retired Allergies Coded Allergies: Sulfamethoxazole w/Trimethoprim (Verified Allergy, Intermediate, hives, 10/29) Current Inpatient Medications Current Inpatient Medications Medications (Trade) Dose Ordered Sig/Jonatan Route Start Time Stop Time Status Last Admin Dose Admin Ioversol (Optiray 320) 100 ml UD PRN IV 03/24/17 19:15 03/28/17 19:14 Gadobutrol (Gadavist) 6.5 mmol UD PRN IV 03/25/17 00:15 03/29/17 00:14 Aspirin (Ecotrin Tab) 81 mg QAM PO 03/25/17 09:00 04/24/17 08:59 03/25/17 08:41 81 MG Miscellaneous Information (Pharmacist Discharge Med Rec Consult) 1 ea UD PRN N/A 03/25/17 01:15 04/24/17 01:14 Acetaminophen (Tylenol Tab) 650 mg Q4H PRN PO 03/25/17 01:15 04/24/17 01:14 Cetirizine HCl (zyrTEC TAB) 10 mg QPM PO 03/25/17 21:00 04/24/17 20:59 Cholecalciferol (Vitamin D Tab) 1,000 inter.unit QPM PO 03/25/17 21:00 04/24/17 20:59 Simvastatin (Zocor Tab) 40 mg QPM PO 03/25/17 21:00 04/24/17 20:59 Miscellaneous (Iv Fluids Completed) 1 ea PRN PRN N/A 03/25/17 01:45 03/25/18 01:44 Review of Systems Constitutional: No fatigue, No fever, No weakness Eyes: No diplopia, No worsening of vision ENT: No hearing loss, No sore throat, No tinnitus Respiratory: No cough, No shortness of breath Cardiovascular: No chest pain, No palpitations Abdomen: No nausea, No pain Musculoskeletal: No joint pain, No muscle pain Genitourinary - Female: No dysuria, No urinary incontinence Neurologic: + vertigo, No balance problems, No memory loss, No numbness/ tingling, No weakness Psychiatric: No anxiety, No depression symptoms Endocrine: No fatigue Hematologic / Lymphatic: No abnormal bleeding/bruising Integumentary: No rash Allergic / Immunologic: No hives Physical Exam Vital Signs (Past 24 Hrs): Date Time Temp Pulse Resp B/P Pulse Ox O2 Delivery O2 Flow Rate FiO2 03/25/17 08:39 37.0 60 20 120/73 97 03/25/17 04:00 Room Air 03/25/17 02:30 36.7 82 18 108/71 97 Room Air 03/25/17 01:06 84 20 115/68 96 Room Air 03/25/17 00:08 82 18 119/71 96 Room Air 03/24/17 21:59 90 18 117/72 96 Room Air 03/24/17 20:34 86 03/24/17 20:16 82 18 149/79 97 Room Air 03/24/17 19:16 98 Room Air 03/24/17 18:51 36.7 86 18 149/85 98 Room Air Patient is right-handed. The patient is awake and alert. Speech is normal without aphasia or dysarthria. Mentation and thought processes are intact with orientation and normal fund of knowledge. Mood and affect are normal and appropriate. Appearance and grooming are normal. The discs are sharp with positive venous pulsations. Pupils are 4mm on the right and 3 mm on the left with both reactive to light. Extraocular eye muscles are intact some intermittent nystagmus with lateral gaze and fast component in the direction of gaze. This nystagmus was not consistent and there is no rotary or vertical nystagmus. Visual acuity and visual buckley seem normal grossly to confrontation. There are no deficits to sensation of the face bilaterally. Corneal reflexes are positive bilaterally. Facial strength and symmetry is normal bilaterally. Hearing seems intact grossly to voice and finger rub. Palate moves well without astmmetry. There is normal sternocleidomastoid and trapezius strength bilaterally. Tongue is midline with good strength bilaterally. Neck is with full range of motion without discomfort. There are no cervical bruits. There are no cranial or ocular bruits. Heart is without murmur. Cervical, thoracic, and lumbar spine are nontender to palpation. Gait is normal. There is good are swing, turn, stance, and balance. With outstretched arms there is no drift. There are no resting, postural, or action tremors. There is no ataxia with [id number] testing. There is good facility in the hands. There are no abnormal involuntary movements noted. Motor strength is 5/5 diffusely in the arms bilaterally including deltoids, biceps, brachioradialis, wrist flexors and extensors, telecommunications network planner, and intrinsic hand muscles. Motor strength is 5/5 diffusely in the legs bilaterally including hip flexors, quadriceps, hamstring, gastrocnemius, tibialis anterior, tibialis posterior, and peroneii muscles bilaterally. Toe extensors are normal and there is good bulk in the extensor digitorum brevis muscle bilaterally. The limbs have good tone without rigidity or spasticity, and there is no atrophy noted. Muscle bulk is normal, there is no tenderness, no myotonia noted to percussion, and no fasciculations seen. Sensory examination is intact to pin and touch throughout all four limbs. Reflexes are 2/4 in the biceps, triceps, brachioradialis, quadriceps, and Achilles tendons bilaterally. Toes are downgoing with plantar stimulation bilaterally. Peripheral pulses are present and of normal quality distally in all four limbs. There is no peripheral edema noted. Laboratory Results Past 24 Hours: 03/24/17 19:20 Red Blood Count 4.69, Mean Corpuscular Volume 90.2, Mean Corpuscular Hemoglobin 29.4, Mean Corpuscular Hemoglobin Concent 32.6, Mean Platelet Volume 10.0, Neutrophils (%) (Auto) 46.6, Lymphocytes (%) (Auto) 32.0, Monocytes (%) (Auto) 6.4, Eosinophils (%) (Auto) 14.3, Basophils (%) (Auto) 0.5, Neutrophils # (Auto ) 3.78, Lymphocytes # (Auto) 2.60, Monocytes # (Auto) 0.52, Eosinophils # (Auto ) 1.16, Basophils # (Auto) 0.04 03/24/17 19:20 Test 03/24/17 19:20 03/24/17 19:30 03/24/17 20:18 03/25/17 01:35 White Blood Count 8.12 K/uL (4.8-10.8) Red Blood Count 4.69 M/uL (4.2-5.4) Hemoglobin 13.8 g/dL (12.0-16.0) Hematocrit 42.3 % (37-47) Mean Corpuscular Volume 90.2 fL (80-100) Mean Corpuscular Hemoglobin 29.4 pg (25-34) Mean Corpuscular Hemoglobin Concent 32.6 g/dl (32-36) Platelet Count 307 K/uL (130-400) Mean Platelet Volume 10.0 fL (7.4-10.4) Neutrophils (%) (Auto) 46.6 % Lymphocytes (%) (Auto) 32.0 % Monocytes (%) (Auto) 6.4 % Eosinophils (%) (Auto) 14.3 % Basophils (%) (Auto) 0.5 % Neutrophils # (Auto) 3.78 K/uL (1.4-6.5) Lymphocytes # (Auto) 2.60 K/uL (1.2-3.4) Monocytes # (Auto) 0.52 K/uL (0.11-0.59) Eosinophils # (Auto) 1.16 K/uL (0-0.5) Basophils # (Auto) 0.04 K/uL (0-0.2) RDW Standard Deviation 47.2 fL (36.4-46.3) RDW Coefficient of Variation 14.3 % (11.5-14.5) Immature Granulocyte % (Auto) 0.2 % Immature Granulocyte # (Auto) 0.02 K/uL (0.00-0.02) Prothrombin Time 10.1 SECONDS (9.0-12.0) Prothromb Time International Ratio 0.9 (0.9-1.1) Activated Partial Thromboplast Time 24.1 SECONDS (21.0-31.0) Partial Thromboplastin Ratio 0.9 Anion Gap 4.0 mmol/L (3-11) Est Creatinine Clear Calc Drug Dose 64.2 ml/min Estimated GFR () 85.1 Estimated GFR (Non- 73.4 BUN/Creatinine Ratio 22.8 (10-20) Estimated Average Glucose 117 mg/dl Hemoglobin A1c 5.7 % (4.5-5.6) Calcium Level 9.8 mg/dl (8.5-10.1) Bedside Prothrombin Time INR 1.0 (0.9-1.1) Bedside Glucose 91 mg/dl (70-90) Urine Color YELLOW Urine Appearance CLEAR (CLEAR) Urine pH 5.5 (4.5-7.5) Urine Specific [place] 1.010 (1.000-1.030) Urine Protein NEG (NEG) Urine Glucose (UA) NEG (NEG) Urine Ketones NEG (NEG) Urine Occult Blood NEG (NEG) Urine Nitrite NEG (NEG) Urine Bilirubin NEG (NEG) Urine Urobilinogen NEG (NEG) Urine Leukocyte Esterase SMALL (NEG) Urine WBC (Auto) 1-5 /hpf (0-5) Urine RBC (Auto) 0-4 /hpf (0-4) Urine Hyaline Casts (Auto) 0 /lpf (0-5) Urine Epithelial Cells (Auto) 0-5 /lpf (0-5) Urine Bacteria (Auto) NEG (NEG) Test 03/25/17 07:10 Total Creatine Kinase 35 U/L (26-192) Creatine Kinase MB < 0.5 ng/ml (0.5-3.6) Creatine Kinase MB Ratio (0-3.0) Troponin I < 0.015 ng/ml (0-0.045) Imaging Brain MRI WITH AND WITHOUT CONTRAST HISTORY: Pt c/o vertigo TECHNIQUE: Multiplanar multisequence MRI of the brain was performed both before and after the intravenous administration of contrast. COMPARISON STUDY: Head CT 03/24/2017. FINDINGS: There are no areas of restricted diffusion to suggest acute infarction. The midline structures are intact. The paranasal sinuses are clear. The mastoid air cells are clear. The ventricles and sulci are within normal limits for age. There is no mass, hematoma, midline shift. The major vascular flow-voids at the skull base are well maintained. Postcontrast sequences show no areas of abnormal enhancement. Questionable patchy area of enhancement within the right cerebellar hemisphere is likely artifact. IMPRESSION: No acute intracranial abnormality. Electronically signed by: Stewart Ramesh M.D. 03/25/2017 7:15 AM Impression 1. Acute onset vertigo March 24 She is markedly improved and has no significant symptomatology currently. She does have some intermittent lateral nystagmus. She has no other focal neurologic deficits, meningeal signs, or encephalopathy. MRI of the brain is unremarkable with no abnormalities including stroke, tumor, or old ischemia/inflammatory disease MR angiography of the head and neck were unremarkable as well. CT angiography showed some narrowing in the right posterior cerebral artery I believe this vertigo is inner ear in origin and not related to stroke or TIA 2. Abnormal chest x-ray with unremarkable CT scan of the chest. Plan 1. I see no need for additional neurologic testing 2. Consider 81 mg aspirin tablet daily. I no further treatment recommendations to make at this time and contact me if I can be of further assistance on this case.
--- NOTE | 2017-03-25 11:34 | Medical Student: [facility] ---
Med Student History & Physical Date & Time of Service: March 25, 2017 at 07:57 Chief Complaint: TIA Primary Care Physician: Seb Lock M.D. History of Present Illness Source: patient, hospital records The patient is a 61 year old right handed female who is admitted to the hospital for complaints of dizziness. The symptoms started last night (03/24/2017 ) at 1730. The patient was in her basement gathering items from her freezer to make dinner when she was struck with severe dizziness. She reports that "I felt like I had just got off a [id number] and I just couldn't get steady." The patient was able to return back upstairs and make dinner. A "squeezing and clamping" headache was associated with the dizziness around the posterior occipital region of the head. The symptoms did not improve with closing her eyes. She did not experience nausea. The patient took her blood pressure and it was elevated at 164/90. She states her systolic is usually under 120. She states that she thought she was going to "pass out." No other symptoms were reported. The patient did mention that she had fasting blood work done that morning and had only eaten some crackers and yogurt throughout the day. The dizziness did not resolve and she later reported to the emergency department at 1845. In the emergency department, the patient's blood pressure was elevated to 150/ 85. A non-constrast head CT was performed at this time which revealed no evidence of stroke or acute hemorrhage. The emergency department physician noted nystagmus on physical exam and ordered angiography CT of the head which demonstrated moderate to severe narrowing of the mid right DRY DRUG WORKER. A chest X-ray revealed a possible right geovanny-hilar pneumonia. A neurologist at [place] was consulted who advised the patient received IV fluids and 324 mg of aspirin as well as admission to the hospital for further workup. Due to the vagueness of her symptoms, she was not considered a tPA candidate. Since admission to the hospital, the patient's symptoms have resolved. She is not currently experiencing dizziness or headache. Head MRI and MRA were interpreted as being normal. 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 Her maternal grandmother also had MS. The patient has a past medical history of a herniated disc in the lower back, hyperlipidemia controlled with simvastatin scintillating scotomata, arthritis of the right hand, shingles, and s/p tubal ligation. The patient did have a right patellar fracture this past November. There is still some associated stiffness and edema around the knee. She is currently resting comfortable in her hospital bed. 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 The patient has never smoked and occasionally drinks a glass of wine. Smoking Status: Never Smoker Smokeless Tobacco Use: No Alcohol Use: occasionally Drug Use: none Marital Status: Housing status: lives with family Occupational Status: retired Allergies Coded Allergies: Sulfamethoxazole w/Trimethoprim (Verified Allergy, Intermediate, hives, 10/29) Medications Cetirizine (Zyrtec), 10 MG PO QPM Cholecalciferol (Vitamin D), 3,000 UNITS PO QPM Simvastatin (Zocor), 20 MG PO QPM Review of Systems Constitutional: No chills, No fatigue, No fever, No sweats, No weakness Eyes: No worsening of vision ENT: No hearing loss, No sore throat, No tinnitus, No trouble swallowing Respiratory: No shortness of breath Cardiovascular: No chest pain, No edema Abdomen: No pain Musculoskeletal: + joint pain (arthritis of right hand) Neurologic: + vertigo Physical Exam Vital Signs (24 Hours) Date Time Temp Pulse Resp B/P Pulse Ox O2 Delivery O2 Flow Rate FiO2 03/25/17 04:00 Room Air 03/25/17 02:30 36.7 82 18 108/71 97 Room Air 03/25/17 01:06 84 20 115/68 96 Room Air 03/25/17 00:08 82 18 119/71 96 Room Air 03/24/17 21:59 90 18 117/72 96 Room Air 03/24/17 20:34 86 03/24/17 20:16 82 18 149/79 97 Room Air 03/24/17 19:16 98 Room Air 03/24/17 18:51 36.7 86 18 149/85 98 Room Air General Appearance: WD/WN, no apparent distress Head: normocephalic, atraumatic Eyes: normal inspection, EOMI, funduscopic exam normal ENT: hearing grossly normal Back: no muscle spasm, normal range of motion Extremities/Musculoskelatal: normal inspection, no calf tenderness, normal range of motion Neurologic exam Mental Status The patient is awake, alert, and oriented to person, time and place. There is no dysarthria or aphasia. Her mentation is normal. Her mood and affect are appropriate. She is appropriately concerned about her condition. Motor Proximal muscles of the upper extremity are 5/5. Distal muscle of the left upper extremity are 5/5. Distal muscles of the right upper extremity are 4/5 secondary to arthritis. Cryptographic Center Specialist strength is 4/5 in the right hand. Proximal and distal muscles of the lower extremities are 5/5. There is no muscle atrophy or wasting noted. Muscle bulk and tone are normal. Cranial Nerves II Right pupil is 4mm, left pupil is 3mm. Both pupils are equal, round, and reactive to light. Disc are sharp and venous pulsations are visible. III, IV, EOMIs are intact. There is no nystagmus is noted while the patient is laying down. Upon sitting up, slight horizontal nystagmus is noted upon having the patient look to the extreme left and right. The nystagmus is very mild and only involves one or two saccades before it stops. V Sensation is intact to all three distributions of the nerve. Masseters contract fully upon forcefully closing the jaw. VII No facial droop is noted. The patient smiles evenly without nasolabial flattening. VIII Hearing is grossly intact to finger rub bilaterally IX, X Phonation is normal. The palate elevates evenly and the uvula is in the midline. XI Shoulder shrug is 5/5. The patient is able to turn her head to the left and right against resistance. XII The tongue protrudes to midline. The tongue has full movement in all directions and 5/5 strength. Sensation Sensation is normal to light touch, pin prick, vibration, and temperature in the face and upper and lower extremities bilaterally. DTRs Reflexes of the biceps, brachioradialis, triceps, knee, and ankle jerk are 2/4 bilaterally. Plantar response to stimulation is downgoing in both feet. Coordination/Gait No abnormalities are noted on [id number], heel to wilde, or rapid alternating movement testing. The patient is able to ambulate by herself without support. She appears steady with a normal width gait and stride. Diagnostics Laboratory Results Results Past 24 Hours Test 03/24/17 19:20 03/24/17 19:30 03/24/17 20:18 03/25/17 01:35 Range/Units White Blood Count 8.12 4.8-10.8 K/uL Red Blood Count 4.69 4.2-5.4 M/uL Hemoglobin 13.8 12.0-16.0 g/dL Hematocrit 42.3 37-47 % Mean Corpuscular Volume 90.2 80-100 fL Mean Corpuscular Hemoglobin 29.4 25-34 pg Mean Corpuscular Hemoglobin Concent 32.6 32-36 g/dl Platelet Count 307 130-400 K/uL Mean Platelet Volume 10.0 7.4-10.4 fL Neutrophils (%) (Auto) 46.6 % Lymphocytes (%) (Auto) 32.0 % Monocytes (%) (Auto) 6.4 % Eosinophils (%) (Auto) 14.3 % Basophils (%) (Auto) 0.5 % Neutrophils # (Auto) 3.78 1.4-6.5 K/uL Lymphocytes # (Auto) 2.60 1.2-3.4 K/uL Monocytes # (Auto) 0.52 0.11-0.59 K/uL Eosinophils # (Auto) 1.16 0-0.5 K/uL Basophils # (Auto) 0.04 0-0.2 K/uL RDW Standard Deviation 47.2 36.4-46.3 fL RDW Coefficient of Variation 14.3 11.5-14.5 % Immature Granulocyte % (Auto) 0.2 % Immature Granulocyte # (Auto) 0.02 0.00-0.02 K/uL Prothrombin Time 10.1 9.0-12.0 SECONDS Prothromb Time International Ratio 0.9 0.9-1.1 Activated Partial Thromboplast Time 24.1 21.0-31.0 SECONDS Partial Thromboplastin Ratio 0.9 Sodium Level 140 136-145 mmol/L Potassium Level 3.9 3.5-5.1 mmol/L Chloride Level 104 98-107 mmol/L Carbon Dioxide Level 32 21-32 mmol/L Anion Gap 4.0 3-11 mmol/L Blood Urea Nitrogen 19 7-18 mg/dl Creatinine 0.85 0.60-1.20 mg/dl Est Creatinine Clear Calc Drug Dose 64.2 ml/min Estimated GFR () 85.1 Estimated GFR (Non- 73.4 BUN/Creatinine Ratio 22.8 10-20 Random Glucose 85 70-99 mg/dl Estimated Average Glucose 117 mg/dl Hemoglobin A1c 5.7 4.5-5.6 % Calcium Level 9.8 8.5-10.1 mg/dl Total Creatine Kinase 52 26-192 U/L Creatine Kinase MB < 0.5 0.5-3.6 ng/ml Creatine Kinase MB Ratio 0-3.0 Troponin I < 0.015 0-0.045 ng/ml Bedside Prothrombin Time INR 1.0 0.9-1.1 Bedside Glucose 91 70-90 mg/dl Urine Color YELLOW Urine Appearance CLEAR CLEAR Urine pH 5.5 4.5-7.5 Urine Specific [place] 1.010 1.000-1.030 Urine Protein NEG NEG Urine Glucose (UA) NEG NEG Urine Ketones NEG NEG Urine Occult Blood NEG NEG Urine Nitrite NEG NEG Urine Bilirubin NEG NEG Urine Urobilinogen NEG NEG Urine Leukocyte Esterase SMALL NEG Urine WBC (Auto) 1-5 0-5 /hpf Urine RBC (Auto) 0-4 0-4 /hpf Urine Hyaline Casts (Auto) 0 0-5 /lpf Urine Epithelial Cells (Auto) 0-5 0-5 /lpf Urine Bacteria (Auto) NEG NEG Test 03/25/17 07:10 Range/Units Total Creatine Kinase 35 26-192 U/L Creatine Kinase MB < 0.5 0.5-3.6 ng/ml Creatine Kinase MB Ratio 0-3.0 Troponin I < 0.015 0-0.045 ng/ml Impression Assessment and Plan Assessment This is a 61 year old woman with vertiginous symptoms that started 03/24/2017 around 1730. The symptoms have since resolved. She is currently back to normal. Full stroke work-up has been performed and has revealed no evidence of stroke. Her CT angiography of the brain did reveal a narrowing of the mid right DRY DRUG WORKER. At this time, her symptoms are best explained by benign positional vertigo. Other diagnoses such as TIA, stroke, tumor, or meniere's disease were considered, but seem less likely due to her negative workup and absence of tinnitus and hearing loss. The brain MRI also did not reveal any demyelinating disease at this time. Plan 1.) Continue simvastatin as prescribed outpatient to prevent further narrowing of the right DRY DRUG WORKER. - There have been case reports of successful stenting of DRY DRUG WORKER stenosis, however I do not think she would be a candidate at this time since she seems largely asymptomatic and her current complaint is better explained by an inner ear problem. 2.) Begin 81mg of aspirin daily for stroke prophylaxis. 3.) Considering her mother's history of TIAs/stroke and evidence of DRY DRUG WORKER stenosis , I would monitor this patient's blood pressure and cholesterol levels closely. I would have a low threshold to increase her statin dose. 4.) Encourage more physical activity and exercise to further decrease risk of future ischemic events. Level of Care Med/Surg Advanced Directives Existing Advance Directive: No Existing Living Will: No Existing Power of Information Systems Security Developer: No
[2017-03-25 11:35] VITALS: BP 115/75; PULSE 74; TEMP 36.8; O2SAT 97
[2017-03-25] MEDS ORDERED: TRIA1SPR4 NAE ×2 (13:09)
[2017-03-25] MEDS ORDERED: MECL-91 PO ×2 (13:09)
--- NOTE | 2017-03-25 13:22 | Discharge Instructions ---
Discharge Instructions Date of Service March 25, 2017. Admission Reason for Admission: dizziness/vertigo Discharge Discharge Diagnosis / Problem: vertigo from the inner ear Discharge Goals Goal(s): Learn about illness, Diagnostic testing, Therapeutic intervention Activity Recommendations Activity Limitations: as noted below May resume driving when vertigo is fully resolved and you have not taken any meclizine (antivert) for at least 24 hours . Instructions / Follow-Up Instructions / Follow-Up From Dr. Gaines: 1. Vertigo - It is likely that your dizziness/vertigo is from the right ear (the "inner" ear) . Sometimes this is caused by a common cold virus. Typically vertigo is self-limiting. You may take meclizine 25mg every 6 hours as needed for dizziness/vertigo. Some people experience sleepiness/tiredness when taking meclizine. If your vertigo persists, becomes associated with hearing loss or ringing in the ear, or you develop balance troubles or visual issues - please see your family doctor right away. 2. You were seen by a stroke specialist and it was felt that your symptoms were NOT due to a TIA (transient ischemic attack). Therefore, at this time, we are not recommending that you take aspirin or any other preventive aid. 3. Consider following a low-salt diet for the next few days. 4. Allergies - continue your zyrtec but consider taking nasacort or nasonex nasal spray every day for your symptoms. 5. See Dr. Lock next week. Please call his office if your symptoms of vertigo worsen, you develop any other neurological symptoms, etc. Current Hospital Diet Patient's current hospital diet: AHA Diet (Heart Healthy) Discharge Diet Recommended Diet: AHA Diet (Heart Healthy) Procedures Procedures Performed: CAT scans and MRIs of the brain & neck were NORMAL (one CAT scan showed a possible narrowing of one blood vessel at the back of the neck) Pending Studies Studies pending at discharge: no Laboratory Results Hemoglobin A1c Test 03/24/17 19:20 Range/Units Estimated Average Glucose 117 mg/dl Hemoglobin A1c 5.7 H 4.5-5.6 % Lipid Panel Test 03/24/17 07:32 Range/Units Triglycerides Level 74 0-150 mg/dl Cholesterol Level 241 H 0-200 mg/dl HDL Cholesterol 77 mg/dl Cholesterol/HDL Ratio 3.1 LDL Cholesterol, Calculated 149 mg/dl Medical Emergencies . Who to Call and When: Medical Emergencies: If at any time you feel your situation is an emergency, please call 911 immediately. . Non-Emergent Contact Non-Emergency issues call your: Primary Care Provider Call Non-Emergent contact if: temperature is above 100.5, you have any medication questions . . "Provider Documentation" section prepared by Rashaun Gaines. . VTE Core Measure Inpt VTE Proph given/why not?: SCD's
[2017-03-25 15:07] VITALS: BP 117/73; PULSE 62; TEMP 37; O2SAT 96
--- NOTE | 2017-03-25 15:15 | ECHOCARDIOGRAM REPORT ---
*NOTICE TO RECEIVING DEMOCRAT AGENCY This information is strictly Confidential and protected under [place] law. [place] law prohibits you from making any further disclosure of this information unless further disclosure is expressly permitted by the written consent of the person to whom it pertains or is authorized by law. A general authorization for the release of medical or other information is not sufficient for this purpose. Hospital accepts no responsibility if the information is made available to any other person, INCLUDING THE PATIENT. Interpretation Summary * Name: LILA MEJIA Study Date: 03/25/2017 07:38 AM BP: 120/73 mmHg * Patient Location: [facility]\S\N282\S\2 HR: 60 * : 1955 (M/d/yyyy) Gender: Female Height: 66 in * Age: 61 yrs Ethnicity: [place] Weight: 141 lb * Ordering Physician: Guy Flores * Referring Physician: Self, Referred * Performed By: Ligia Acevedo RDCS * * Reason For Study: CEREBRAL ISCHEMIA/ EMBOLUS * BSA: 1.7 m2 * -- Conclusions -- * Left ventricular systolic function is normal. * Grade I diastolic dysfunction, (abnormal relaxation pattern). * Injection of contrast documented no interatrial shunt. Procedure Details * A saline contrast injection was performed to assess for cardiac shunting. * The injection was performed through an intravenous line in the left arm. * The attending nurse who injected the saline contrast was MCKENZIE WEBER. * A total of 20 cc of agitated saline was given. Left Ventricle * The left ventricle is normal in size. * There is normal left ventricular wall thickness. * Ejection Fraction = 50-55%. * Left ventricular systolic function is normal. * Grade I diastolic dysfunction, (abnormal relaxation pattern). * The left ventricular wall motion is normal. Right Ventricle * The right ventricle is normal in size and function. Atria * The left atrial size is normal. * Right atrial size is normal. * Injection of contrast documented no interatrial shunt. Mitral Valve * The mitral valve anatomy is normal. * Significant mitral regurgitation is absent. Tricuspid Valve * The tricuspid valve is not well visualized, but is grossly normal. * Significant tricuspid regurgitation is absent. Aortic Valve * The aortic valve is trileaflet. * Some thickening of the left coronary cusp is seen at the coaptation. * No hemodynamically significant valvular aortic stenosis. * There is no significant aortic regurgitation. Great Vessels * The aortic root is normal size. Pericardium/Pleural * There is no pericardial effusion. MMode 2D Measurements and Calculations IVSd 1.1 cm IVSs 1.6 cm LVIDd 3.9 cm LVIDs 2.8 cm LVPWd 0.89 cm LVPWs 1.3 cm IVS/LVPW 1.2 FS 27.8 % EDV(Teich) 64.4 ml ESV(Teich) 29.3 ml EF(Teich) 54.5 % EDV(cubed) 57.6 ml ESV(cubed) 21.7 ml EF(cubed) 62.3 % % IVS thick 44.9 % % LVPW thick 49.8 % LV mass(C)d 119.3 grams LV mass(C)dI 69.2 grams/m\S\2 LV mass(C)s 137.8 grams LV mass(C)sI 79.9 grams/m\S\2 SV(Teich) 35.1 ml SI(Teich) 20.4 ml/m\S\2 SV(cubed) 35.9 ml SI(cubed) 20.8 ml/m\S\2 Ao root diam 3.1 cm Ao root area 7.8 cm\S\2 LA dimension 2.7 cm LA/Ao 0.85 LVAd ap4 29.1 cm\S\2 LVLd ap4 7.8 cm EDV(MOD-sp4) 88.2 ml EDV(sp4-el) 91.9 ml LVAs ap4 18.9 cm\S\2 LVLs ap4 6.9 cm ESV(MOD-sp4) 44.9 ml ESV(sp4-el) 44.1 ml EF(MOD-sp4) 49.1 % EF(sp4-el) 52.0 % LVAd ap2 28.0 cm\S\2 LVLd ap2 7.8 cm EDV(MOD-sp2) 81.8 ml EDV(sp2-el) 85.0 ml LVAs ap2 17.2 cm\S\2 LVLs ap2 6.9 cm ESV(MOD-sp2) 38.8 ml ESV(sp2-el) 36.6 ml EF(MOD-sp2) 52.6 % EF(sp2-el) 56.9 % LVLd %diff -0.12 % EDV(MOD-bp) 85.8 ml LVLs %diff -0.04 % ESV(MOD-bp) 41.6 ml EF(MOD-bp) 51.5 % SV(MOD-sp4) 43.3 ml SI(MOD-sp4) 25.1 ml/m\S\2 SV(MOD-sp2) 43.1 ml SI(MOD-sp2) 25.0 ml/m\S\2 SV(MOD-bp) 44.2 ml SI(MOD-bp) 25.6 ml/m\S\2 SV(sp4-el) 47.9 ml SI(sp4-el) 27.8 ml/m\S\2 SV(sp2-el) 48.4 ml SI(sp2-el) 28.1 ml/m\S\2 Doppler Measurements and Calculations MV E max yolanda 70.3 cm/sec MV A max yolanda 87.3 cm/sec MV E/A 0.81 MV dec time 0.22 sec Ao V2 max 154.2 cm/sec Ao max PG 9.5 mmHg Ao max PG (full) 4.4 mmHg LV V1 max PG 5.1 mmHg LV V1 max 112.5 cm/sec
[2017-03-25 15:39] VITALS: BP 117/73; PULSE 62; TEMP 37; O2SAT 96
--- NOTE | 2017-03-25 20:27 | Discharge Summary ---
Discharge Summary Date of Service March 25, 2017. Discharge Summary Admission Date: March 25, 2017 at 01:11 Discharge Date: March 25, 2017 Discharge Disposition: Home Principal Diagnosis: acute peripheral vertigo Problems/Secondary Diagnoses: 1. allergic rhinitis 2. hyperlipidemia 3. h/o benign thyroid nodule Procedures: 1. CT head - normal. 2. CT chest - no pathology except a 1.5cm right thyroid nodule. 3. CTA head - IMPRESSION: 1. Focal moderate to severe narrowing within the mid right [employer]ISTR[employer] SUPPORT SPECIALIST. However, the distal right [employer]MINISTRATIVE SUPPORT SPECIALIST is patent. 2. Otherwise, the remaining cerebral arteries show no significant stenosis, occlusion, or aneurysm. 4. MRA neck - IMPRESSION: No significant stenosis, occlusion, or dissection identified within the carotid or vertebral arteries. 5. MRA head - IMPRESSION: No significant stenosis, occlusion, or aneurysm within the e[place] of [place]. 6. MRI brain - negative; no mass, stroke, etc. 7. echocardiogram - * -- Conclusions -- * Left ventricular systolic function is normal. * Grade I diastolic dysfunction, (abnormal relaxation pattern). * Injection of contrast documented no interatrial shunt. Consultations: neurology - Manjeet Flores MD Medication Reconciliation New Medications: Meclizine HCl (Meclizine 25) 25 Mg Tab 25 MG PO Q6H PRN for vertigo/dizziness, #30 TAB 0 Refills Triamcinolone Acetonide (Nasal (Nasacort Allergy 24Hr) 55 Mcg/Act Spr 2 SPRAYS CAPRI DAILY, #1 BTL 11 Refills Continued Medications: Cetirizine (Zyrtec) 10 Mg Tab 10 MG PO QPM, TAB Cholecalciferol (Vitamin D) 1,000 Unit Tab 3000 UNITS PO QPM Simvastatin (Zocor) 20 Mg Tab 20 MG PO QPM, 0 Refills Discharge Exam Physical Exam: General Appearance: WD/WN, no apparent distress Eyes: PERRL, + pertinent finding (nystagmus, horizontal, fast component towards the right ) ENT: pharynx normal Neck: no JVD Respiratory/Chest: lungs clear, no respiratory distress, no accessory muscle use Cardiovascular: regular rate, rhythm, no gallop, no murmur, normal peripheral pulses Abdomen / GI: normal bowel sounds, non tender, soft, no organomegaly Extremities: no pedal edema 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iatric: no motor/sensory deficits, alert, oriented x 3 Hospital Course HISTORY OF PRESENT ILLNESS: The patient is a 61-year-old female who presented to the emergency department with complaint of intermittent dizziness that began just prior to arrival. She was in her basement when the symptoms began and was about to walk up the steps. She also had generalized head pressure, and she noted that her blood pressure was higher than usual when she checked it just prior to arrival. The dizziness was worse with some directions of head movement, and did not change when she closed her eyes. She denied focal weakness, numbness or tingling in arms or legs, and she had no difficulty with speech, swallowing, or memory function. HOSPITAL COURSE: During her short stay all imaging studies, telemetry, and labs were normal ( with the exception of eosinophilia, likely from her allergic rhinitis). She was seen in consult by Dr. Manjeet Flores, neurology, who felt she had acute peripheral vertigo, likely from an inner ear issue such as labrynthitis. TIA was NOT suspected. Antiplatelet agent use for TIA/stroke prophylaxis was not recommended. She had no features to suggest Meniere's disease. By the time of discharge her vertigo was improved and she was ambulating without difficulty. She will discharge with meclizine to be used on an as needed basis. Incidentally she was noted to have a right-sided thyroid nodule on CT chest. This nodule was biopsied in the past and was found to be benign. She will follow with Dr. Lock for this. Total Time Spent: Greater than 30 minutes This includes examination of the patient, discharge planning, medication reconciliation, and communication with other providers. Discharge Instructions Please refer to the electronic Patient Visit Report (Discharge Instructions) for additional information. Follow-Up see Dr. Lock within 1 week Additional Copies To Seb Lock M.D.
[2017-03-25] MEDS ORDERED: CETIRIZINE HCL 10 MG TAB PO SCH (21:00)
[2017-03-25] MEDS ORDERED: SIMVASTATIN 20 MG TAB PO SCH (21:00)
[2017-03-25] MEDS ORDERED: CHOLECALCIFEROL 1000 INTER.UNIT TAB PO SCH (21:00)
[2017-03-30 13:38] LABS: B2 GLYCOPROTEIN IGA <9 SAU (<=20); B2 GLYCOPROTEIN IGG <9 SGU (<=20); B2 GLYCOPROTEIN IGM <9 SMU (<=20); LUPUS ANTICOAGULANT** TC36573X Negative (Negative)
== END 2017-03-25 16:26 | disposition home or self-care (01) ==
LOC: ENRESERVTM → ENRESERVDT → C.EDB 18:49 → C.MED 03-25 01:11
PROVIDERS: ADMIT Hospitalist; ATTEND Internal Medicine
DX: H81.399 Other peripheral vertigo, unspecified ear (principal); J30.9 Allergic rhinitis, unspecified; E78.5 Hyperlipidemia, unspecified; Z80.9 Family history of malignant neoplasm, unspecified; Z83.3 Family history of diabetes mellitus; Z82.49 Family history of ischemic heart disease and other diseases of the circulatory system; Z82.0 Family history of epilepsy and other diseases of the nervous system; Z88.2 Allergy status to sulfonamides

== ENCOUNTER → 2017-03-24 | Outpatient (CLI) | payer OTHER ==
[2017-03-24 13:22] LABS: ALT/SGPT 23 U/L (12-78); AST/SGOT 11 U/L (15-37); BLOOD UREA NITROGEN 22 mg/dl (7-18); BUN/CREATININE RATIO 29.4 (10-20); CALCIUM 9.4 mg/dl (8.5-10.1); CARBON DIOXIDE 32 mmol/L (21-32); CHLORIDE 105 mmol/L (98-107); CREATININE 0.74 mg/dl (0.60-1.20); GLUCOSE 82 mg/dl (70-99); POTASSIUM 4.3 mmol/L (3.5-5.1); SODIUM 140 mmol/L (136-145)
[2017-03-24 13:34] LABS: ALB/GLOB RATIO 1.1 (0.9-2); ALKALINE PHOSPHATASE 75 U/L (45-117); CHOLESTEROL 241 mg/dl (0-200); CHOLESTEROL/HDL RATIO 3.1; HDL CHOLESTEROL 77 mg/dl; LDL CHOLESTEROL CALCULATED 149 mg/dl; TRIGLYCERIDES 74 mg/dl (0-150); VERY LOW DENSITY LIPOPROT CALC 15 mg/dl
== END | disposition home or self-care (01) ==
LOC: C.LABPBG 07:29
PROVIDERS: ATTEND Internal Medicine
DX: E55.9 Vitamin D deficiency, unspecified (principal)

== ENCOUNTER → 2017-06-01 | Outpatient (CLI) | payer OTHER ==
[~2017-06-01] MED LIST changes: +CETI10TA84 PO; +CHOL100010 PO; -HYDR-5688 PO; +MECL-91 PO; +TRIA1SPR4 NAE
== END | disposition home or self-care (01) ==
LOC: C.MAMM 07:49
PROVIDERS: ATTEND Internal Medicine
DX: M85.89 Other specified disorders of bone density and structure, multiple sites (principal)

== ENCOUNTER → 2017-09-08 | Outpatient (CLI) | payer OTHER | END | disposition home or self-care (01) | LOC: C.PAPS 11:32 | PROVIDERS: ATTEND Obstetrics & Gynecology | DX: Z01.419 Encounter for gynecological examination (general) (routine) without abnormal findings (principal); Z78.0 Asymptomatic menopausal state; Z87.42 Personal history of other diseases of the female genital tract ==

== ENCOUNTER → 2018-02-14 | Outpatient (CLI) | payer OTHER ==
--- NOTE | 2018-02-14 15:21 | MAMMOGRAPHY REPORT ---
BILATERAL DIGITAL DIAGNOSTIC MAMMOGRAM TOMOSYNTHESIS WITH CAD: 02/14/2018 CLINICAL HISTORY: 12 month follow-up of right breast calcifications. Due for annual mammography of t he left breast. TECHNIQUE: Breast tomosynthesis in addition to standard 2D mammography was performed. Current study was also evaluated with a Computer Aided Detection (CAD) system. Bilateral CC and MLO 2D and tomosyn thesis images and spot magnification right CC and ML views were obtained. COMPARISON: Comparison is made to exams dated: 02/13/2017 mammogram, 08/15/2016 mammogram, 02/10/2016 ma mmogram, 02/03/2016 mammogram, 02/02/2015 mammogram, and 01/30/2014 mammogram - [facility]. BREAST COMPOSITION: The tissue of both breasts is heterogeneously dense, which may obscure small mas ses. FINDINGS: Spot magnification views of the right breast again demonstrate 2 adjacent benign-appearing coarse calcifications in the right upper outer quadrant, stable dating back to at least the January 30 exam and considered benign given the morphology and stability. The remainder of both breasts are stable compared to prior exams, without suspicious masses, calcifications, or areas of architectural distortion noted. Other scattered bilateral benign-appearing calcifications are again noted. IMPRESSION: ACR BI-RADS CATEGORY 2: BENIGN There is no mammographic evidence of malignancy in either breast. A 1 year screening mammogram is rec ommended. The patient has been verbally notified of the results. Approximately 10% of breast cancers are not detected with mammography. A negative mammographic report should not delay biopsy if a clinically suggestive mass is present. Arlen Geiger M.D. ah/:02/14/2018 08:46:18 Supervisor Fitting: Olga AGEE(R)([place]), [facility] letter sent: Normal 1/2 BI-RADS Code: ACR BI-RADS Category 2: Benign
== END | disposition home or self-care (01) ==
LOC: C.MAMM 08:15
PROVIDERS: ATTEND Obstetrics & Gynecology
DX: R92.1 Mammographic calcification found on diagnostic imaging of breast (principal)

== ENCOUNTER → 2018-06-11 | Outpatient (CLI) | payer OTHER ==
--- NOTE | 2018-06-11 09:27 | DIAGNOSTIC IMAGING REPORT ---
SOFT TISS HEAD/NECK-THYROID HISTORY: Nodule SOLITARY THYROID NODULE COMPARISON: 04/08/2015 FINDINGS: Right lobe: Maximum linear dimension 5.4 cm. Complex partially cystic nodule mid right thyroid have maximum linear dimension of 1.9 x 1.5 cm. This is essentially unchanged compared to the prior exam. Left lobe: Maximum dimension 4.6 cm. 3 mm hypoechoic nodule unchanged. No evidence for new interval or progressive process. Isthmus: No nodules. IMPRESSION: 1. Stable dominant nodule right thyroid 2. No significant change from the prior study. 3. No evidence for new interval or progressive finding. The above report was generated using voice recognition software. It may contain grammatical, syntax or spelling errors. Electronically signed by: Edu Lassiter M.D. 06/11/2018 9:25 AM Dictated Date/Time: 06/11/2018 9:22 AM
== END | disposition home or self-care (01) ==
LOC: C.ULTRBC 08:46
PROVIDERS: ATTEND Internal Medicine
DX: E04.1 Nontoxic single thyroid nodule (principal)